=== PATIENT | female | born 1985 | race Caucasian/White ===

== ENCOUNTER → 2021-04-18 08:53 | Outpatient (BNVA) | payer OTHER, SELFPAY | PROVIDERS: PCP Family Medicine; Referring Provider Nurse Practitioner; Visit Provider Specialist | DX: M25.531 Pain in right wrist (principal) | CPT/HCPCS: 73110 ==

== ENCOUNTER 2021-05-17 09:13 | Outpatient (CLI) | payer OTHER, SELFPAY ==
--- NOTE | 2021-05-17 09:30 | MR_ITS ---
WS: [id number] INDICATION: RIGHT wrist pain. Fall 2 months ago. TECHNIQUE: Coronal T1, PD, STIR, 3-D FSPGR, axial PD, axial T2 and sagittal T1 imaging. FINDINGS: MR of the RIGHT wrist without gadolinium enhancement. Mild narrowing of the radiocarpal joint. Normal distal radial ulnar joint. Ulna styloid appears enzo l. Normal scaphoid and lunate. Normal scapholunate interval. No scaphoid edema. Small amount of cysti c change involving the lunate and capitate. No acute carpal fractures. TFCC appears intact. DRUJ appears normal. Normal extensor carpi ulnaris. Normal extensor and flexor c ompartment tendons. Normal carpal tunnel. No other significant findings. MR/MR wrist RT wo con* [id number] IMPRESSION: 1. Mild narrowing of the radiocarpal joint. 2. No acute wrist fractures. Normal scaphoid and lunate. Normal scapholunate i nterval. 3. Normal TFCC. 4. Mild degenerative cystic change involving the capitate and lunate. 5. Normal extensor and flexor compartment tendons. 6. Normal carpal tunnel.
== END 2021-05-17 09:14 | disposition home or self-care (01) ==
LOC: RAD 09:16
PROVIDERS: PCP Family Medicine; Visit Provider Specialist
DX: M25.531 Pain in right wrist (principal)
CPT/HCPCS: 73221

== ENCOUNTER 2024-11-25 08:48 | Outpatient (CLI) | payer OTHER, SELFPAY ==
--- NOTE | 2024-11-25 09:00 | MM_ITS ---
WS: [id number] BILATERAL 3D TOMOSYNTHESIS DIGITAL SCREENING MAMMOGRAPHY WITH CAD CLINICAL INFORMATION: SCREENING HISTORY: Screening mammogram. No current complaints. COMPARISON: Baseline TECHNIQUE: Bilateral CC and MLO views. FINDINGS: The breasts are composed of heterogeneous fibroglandular density tissue, which can limit the detection of small underlying mass lesions. No suspicious mass, asymmetry, calcifications, or architectural distortion. No evidence of malignancy. MM/MM scr tomosynthesis [id number] IMPRESSION: DENSITY: The breasts are heterogeneously dense, which may obscure small masses. BI-RADS: 1 - Negative FOLLOW UP: 1 Year Follow-up Recommend return to annual screening mammography.
== END 2024-11-25 08:49 | disposition home or self-care (01) ==
LOC: MOBLMAM 08:50
PROVIDERS: PCP Nurse Practitioner Women's Health; Visit Provider Nurse Practitioner Women's Health
DX: Z12.31 Encounter for screening mammogram for malignant neoplasm of breast (principal); R92.333 Mammographic heterogeneous density, bilateral breasts
CPT/HCPCS: 77063; 77067